=== PATIENT | male | born 1975 | race Caucasian/White ===

== ENCOUNTER 2018-07-17 18:54 | Emergency (ER) | payer OTHER ==
[2018-07-17] MEDS ORDERED: NS 1,000 ML IV ONE (19:03)
[2018-07-17 19:08] VITALS: BP 132/77
--- NOTE | 2018-07-17 19:16 | EDPHY ---
H & P Time Seen by Provider: 07/17/18 19:01 HPI/ROS: HPI Left flank pain. 43-year-old male by private vehicle. This patient has a prior history of right- sided ureterolithiasis in 2003. He presents to the emergency department with a sudden onset left-sided flank pain starting at 6:30 p.m.. He describes this pain is similar to the pain he had with his previous kidney stone. He has had some nausea but no vomiting. He states that he is only urinating in small amounts. Denies gross hematuria. No testicular pain. No history of trauma. No fever. No other complaints. ROS: Constitutional: No fever, no chills. No weakness. Eyes: No discharge. No changes in vision. ENT: No sore throat. No nasal congestion or rhinorrhea. Respiratory: No cough. No shortness of breath. Cardiac: No chest pain, no palpitations. Gastrointestinal: No abdominal pain, no vomiting, no diarrhea. Genitourinary: No hematuria. No dysuria or increased frequency with urination. As above Musculoskeletal: As above. No neck pain. No myalgias or arthralgias. Skin: No rashes. Neurological: No headache. No focal weakness or altered sensation. Past medical history: Orthopedic injuries. Kidney stone on right side in 2003 as above. Currently being treated with amoxicillin for otitis media. Social history: Nonsmoker. No alcohol. Here by himself. Physical Exam: General Appearance: Alert, he appears uncomfortable but not in distress. This patient is responding to questions appropriately and in full sentences. This patient appears well-hydrated and well-nourished. Eyes: Pupils equal and round no pallor or injection. No lid edema, erythema or injection. Respiratory: There are no retractions, lungs are clear to auscultation with good air movement bilaterally. Cardiovascular: Regular rate and rhythm. No murmur. Gastrointestinal: Abdomen is soft and nontender, no masses, bowel sounds normal. No focal tenderness at McBurney's point. No Darling sign. Neurological: Motor sensory function is grossly intact. Cranial nerves are normal. Gait is normal. Skin: Warm and dry, no rashes. Musculoskeletal: Neck is supple and nontender. Vague left-sided CVA tenderness on palpation. No right-sided CVA tenderness on palpation. Extremities are symmetrical. All joints range without pain or impingement. Psychiatric: No agitation. No depression. Database: EKG: Imaging: CT abdomen and pelvis without contrast: Significant for a left-sided 4 mm stone at the UVJ with mild hydronephrosis. There is also a small stone in the left kidney. Results were discussed with staff radiologist Dr. José Miguel Horn. Procedures: Emergency department course: Triage vital signs reviewed and are unremarkable. IV was placed. He was started on IV normal saline with 1 L to be given over the next hour. He has no contraindications to NSAIDs. I-STAT creatinine pending. He will be given IV Toradol for pain if his creatinine is normal. He endorses CT imaging to evaluate for ureterolithiasis. 7:40 p.m., the patient was given a 1 time dose of Toradol 30 mg IV. His creatinine is within normal limits. Results of his CT scan discussed with him. He was also given 0.4 mg of oral Flomax. 8:00 p.m., patient re-evaluated, he is resting comfortably at this time. His pain is currently well controlled. He feels comfortable going home and I feel he is safe for discharge. I will prescribe him Worthing[place], Flomax and Zofran for outpatient treatment. Outpatient management of kidney stones discussed with him. He feels comfortable going home. Urology follow-up discussed. Return to emergency department precautions thoroughly reviewed. All of his questions were answered. He was discharged from the emergency department in good condition. Differential Diagnosis: The differential diagnosis on this patient includes but is not limited to ureterolithiasis, sacroiliac strain, diverticulitis. Testicular torsion, pyelonephritis unlikely. This represents a partial list of diagnoses considered. These considerations are based on history, physical exam, past history, reassessment and diagnostic testing. Smoking Status: Never smoked Constitutional: Initial Vital Signs Temperature (C) 36.9 C 07/17/18 19:05 Heart Rate 76 07/17/18 19:05 Respiratory Rate 16 07/17/18 19:05 Blood Pressure 132/77 H 07/17/18 19:05 O2 Sat (%) 95 07/17/18 19:05 O2 Delivery Mode Room Air Allergies/Adverse Reactions: No Known Allergies Allergy (Unverified 07/19/16 13:25) Home Medications: Medication Instructions Recorded Hydrocodone/APAP 5/325 [W[place] 1 - 2 tab PO Q6H PRN #20 tab 07/19/16 5/325 (*)] Hydrocodone/APAP 5/325 [[place] 1 - 2 tab PO Q4-6PRN PRN #20 tab 07/17/18 5/325 (*)] Ondansetron Odt [Zofran Odt 4 mg 4 mg PO Q4PRN PRN #10 tab 07/17/18 (*)] Tamsulosin HCl [Flomax 0.4 MG (*)] 0.4 mg PO DAILY #4 cap 07/17/18 Medical Decision Making - Data Points Laboratory Results: 07/17/18 19:29 POC Hgb 13.9 gm/dL gm/dL (13.7-17.5) POC Hct 41 % % (40-51) POC Sodium 142 mEq/L mEq/L (135-145) POC Potassium 3.3 mEq/L mEq/L (3.3-5.0) POC Chloride 105 mEq/L mEq/L (97-110) POC BUN 24 mg/dL H mg/dL (7-23) POC Creatinine 1.2 mg/dL mg/dL (0.7-1.3) POC Glucose 115 mg/dL H mg/dL (70-100) Medications Given: Discontinued Medications Sodium Chloride (Ns) 1,000 mls @ 0 mls/hr IV EDNOW ONE; Wide Open PRN Reason: Protocol Stop: 07/17/18 19:04 Last Admin: 07/17/18 19:23 Dose: 1,000 mls Point of Care Test Results: Chemistry 07/17/18 19:29 POC Sodium 142 mEq/L mEq/L (135-145) POC Potassium 3.3 mEq/L mEq/L (3.3-5.0) POC Chloride 105 mEq/L mEq/L (97-110) POC BUN 24 mg/dL H mg/dL (7-23) POC Creatinine 1.2 mg/dL mg/dL (0.7-1.3) POC Glucose 115 mg/dL H mg/dL (70-100) ISTAT H&H 07/17/18 19:29 POC Hgb 13.9 gm/dL gm/dL (13.7-17.5) POC Hct 41 % % (40-51) Urine Dip Collection Date 07/17/18 Collection Time 19:13 Specific Powell (1.002-1.030) 1.030 PH (5.0-7.5) 5.5 Leukocytes (Negative) Negative Nitrites (Negative) Negative Protein (Negative) Negative Glucose (Negative) Negative Ketones (Negative) Negative Urobilnogen (0.2-1.0 EU) 0.2 Bilirubin (Negative) Negative Blood (Negative) 2+ Departure - Departure Disposition: Home, Routine, Self-Care Clinical Impression: Calculus of left kidney Condition: Good Instructions: Kidney Stones (ED) Additional Instructions: Read and follow provided instructions. Follow-up with Urology as discussed on Friday for re-evaluation and any further management. Take medication as prescribed. Keep yourself well hydrated. Drink lots of fluids. Gatorade mixed with water in a 1-1 dilution over ice is a good fluid to drink. Return to the emergency department for worsening pain, fever, back pain, vomiting or other serious concerns. Referrals: Saskia Lopez MD [Primary Care Provider] - As per Instructions Minesh Spangler MD [Medical Doctor] - As per Instructions Prescriptions: Hydrocodone/APAP 5/325 [[place] 5/325 (*)] 1 - 2 tab PO Q4-6PRN PRN #20 tab PRN Reason: Pain, Moderate Ondansetron Odt [Zofran Odt 4 mg (*)] 4 mg PO Q4PRN PRN #10 tab PRN Reason: For Nausea & Vomiting Tamsulosin HCl [Flomax 0.4 MG (*)] 0.4 mg PO DAILY #4 cap
[2018-07-17] MEDS ORDERED: TAMSULOSIN HCL 0.4 MG CAP PO ONE (19:41)
[2018-07-17] MEDS ORDERED: KETOROLAC 30 MG/1 ML SDV IVP ONE (19:45)
== END 2018-07-17 19:56 | disposition home or self-care (01) ==
LOC: CED 18:54
DX: N20.1 Calculus of ureter (principal); E86.9 Volume depletion, unspecified; Z87.442 Personal history of urinary calculi
CPT/HCPCS: 74176-PO; 82435-PO; 82565-PO; 82947-PO; 84132-PO; 84295-PO; 84520-PO; 85014-PO; 96374; J1885